=== PATIENT | male | born 1965 | race African-American/Black ===

== ENCOUNTER 2017-08-25 06:39 | Emergency (ER) | payer SELFPAY ==
[~2017-08-25] VITALS: Ht 193 cm; Wt 116.0 kg
[2017-08-25 08:52] VITALS: BP 152/100
== END 2017-08-25 08:52 | disposition home or self-care (01) ==
LOC: ER 06:39
DX: J02.8 Acute pharyngitis due to other specified organisms (principal); R00.0 Tachycardia, unspecified; M25.812 Other specified joint disorders, left shoulder; F17.200 Nicotine dependence, unspecified, uncomplicated
CPT/HCPCS: 93005; 99283

== ENCOUNTER 2018-07-03 14:15 | Inpatient (IN) | payer SELFPAY ==
[~2018-07-03] VITALS: Ht 193 cm; Wt 124.0 kg
[2018-07-03] VITALS (7 sets, daily range): BP systolic 128–181; BP diastolic 37–113
[2018-07-03] MEDS ORDERED: SODIUM CHLORIDE 0.9% 1,000 ML IV ONE ×3 (14:48→16:00)
[2018-07-03] MEDS ORDERED: KETOROLAC 15MG/ML VIAL IV ONE (15:15)
[2018-07-03 15:35] LABS: BASOPHILS % 0.6 % (0.0-2.0); EOSINOPHILS % 1.2 % (0.0-5.0); HEMATOCRIT. 37.7 % (42.0-52.0); HEMOGLOBIN. 12.1 g/dL (14.0-18.0); LYMPHOCYTES % 20.6 % (20.0-50.0); MEAN CORPUSCULAR HEMOGLOBIN 25.1 pg (28.0-32.0); MEAN CORPUSCULAR VOLUME 77.9 fL (80.0-94.0); MEAN PLATELET VOLUME 8.9 fl (7.4-10.4); MONOCYTES % 6.1 % (2.0-8.0); NEUTROPHILS % 71.5 % (40.0-76.0); PLATELET 285 x1000/uL (130-400); RED BLOOD CELL COUNT 4.83 mill/uL (4.7-6.1); RED CELL DISTRIBUTION WIDTH 14.2 % (11.6-14.6)
[2018-07-03 15:37] LABS: CHLORIDE 104 mEq/L (98-107)
[2018-07-03 15:41] LABS: ETHANOL BLOOD < 10 mg/dL
[2018-07-03] MEDS ORDERED: AZITHROMYCIN 500 MG in DEXT 5% WATER 250 ML IV SCH (15:45)
[2018-07-03] MEDS ORDERED: CEFTRIAXONE 1 G PREMIX 50 ML IV ONE (15:45)
[2018-07-03] MEDS ORDERED: METOPROLOL TARTRATE 5MG/5ML VIAL IV SCH (16:00)
[2018-07-03] MEDS ORDERED: ENOXAPARIN 150MG/ML SYR SUBCUT ONE (16:15)
[2018-07-03] MEDS ORDERED: HEPARIN 25,000 UNITS PREMIX 500 ML IV SCH ×3 (17:30→23:30)
[2018-07-03] MEDS ORDERED: HEPARIN 5000 UNITS/ML VIAL IV ONE ×2 (18:00)
[2018-07-03] MEDS ORDERED: HEPARIN 5000 UNITS/ML VIAL ONE (18:00)
[2018-07-03] MEDS ORDERED: ALTEPLASE IV NR (18:15)
[2018-07-03] MEDS ORDERED: DOCUSATE SODIUM 100MG CAPSULE PO PRN (18:15)
[2018-07-03] MEDS ORDERED: IPRATROPIUM/ALBUTEROL 0.5-3(2.5)MG/3ML NEB INH PRN (18:15)
[2018-07-03] MEDS ORDERED: MAGNESIUM/ALUMINUM HYDROXIDE/SIMETHICONE 30ML UDC PO PRN (18:15)
[2018-07-03] MEDS ORDERED: SODIUM CHLORIDE 0.9% IV NR (18:15)
[2018-07-03] MEDS ORDERED: ACETAMINOPHEN 325MG TABLET PO PRN (18:15)
[2018-07-03] MEDS ORDERED: ALTEPLASE IV PRN (18:15)
[2018-07-03] MEDS ORDERED: SODIUM CHLORIDE 0.9% IV PRN (18:15)
[2018-07-03] MEDS ORDERED: GUAIFENESIN 200MG/10ML SUGAR FREE UDC PO PRN (18:15)
[2018-07-03] MEDS ORDERED: CLONIDINE 0.1MG TABLET PO PRN (18:15)
[2018-07-03] MEDS ORDERED: TRAMADOL 50MG TABLET PO PRN (18:15)
[2018-07-03] MEDS ORDERED: LEVOFLOXACIN 500MG PREMIX 100 ML IV SCH (18:15)
[2018-07-03] MEDS ORDERED: ONDANSETRON HCL 4MG/2ML INJ IV PRN (18:15)
[2018-07-03] MEDS ORDERED: ENOXAPARIN 60MG/0.6ML SYR SUBCUT SCH (21:00)
[2018-07-03] MEDS ORDERED: DEXTROSE 50% WATER 50ML SYRINGE IV PRN (21:45)
[2018-07-03 22:25] LABS: TOTAL IRON BINDING CAPACITY 240 ug/dL (250-450)
[2018-07-04] VITALS (86 sets, daily range): BP systolic 93–188; BP diastolic 26–125
[2018-07-04] MEDS ORDERED: KCL 20MEQ/100ML PREMIX 100 ML IV NR
[2018-07-04] MEDS ORDERED: DILTIAZEM HCL 60MG TABLET PO SCH
[2018-07-04] MEDS ORDERED: HEPARIN BOLUS PRN aPTT 37-44 IV ×2 (00:45)
[2018-07-04] MEDS ORDERED: HEPARIN BOLUS PRN aPTT <36 IV ×2 (00:45)
[2018-07-04] MEDS ORDERED: HEPARIN 80 UNITS/KG BOLUS IV SCH (00:45)
[2018-07-04] MEDS: HEPARIN 25,000 UNITS PREMIX 500 ML IV SCH ×3 (01:29→13:20)
[2018-07-04 01:34] LABS: CREATINE KINASE 154 IU/L (39-308)
[2018-07-04 01:35] LABS: CREATINE KINASE MB FRACTION < 1.0 ng/mL (0.5-3.6)
[2018-07-04 02:16] LABS: INR 1.3; PROTHROMBIN TIME 12.9 sec (9.1-11.1)
[2018-07-04] MEDS: LEVOFLOXACIN 500MG PREMIX 100 ML IV SCH (04:12)
[2018-07-04 06:00] LABS: HEMATOCRIT. 34.4 % (42.0-52.0); LYMPHOCYTES % 27.3 % (20.0-50.0); MEAN CORPUSCULAR HEMOGLOBIN 24.7 pg (28.0-32.0); MEAN CORPUSCULAR VOLUME 77.3 fL (80.0-94.0); MEAN PLATELET VOLUME 8.6 fl (7.4-10.4); NEUTROPHILS % 62.7 % (40.0-76.0); PLATELET 253 x1000/uL (130-400); RED BLOOD CELL COUNT 4.45 mill/uL (4.7-6.1); RED CELL DISTRIBUTION WIDTH 14.1 % (11.6-14.6)
[2018-07-04 06:12] LABS: CHLORIDE 108 mEq/L (98-107)
[2018-07-04] MEDS ORDERED: MORPHINE SULFATE 4 MG/ML CPJ (NOT FOR IM USE) IV PRN (06:15)
[2018-07-04 06:20] LABS: CREATINE KINASE 155 IU/L (39-308)
[2018-07-04 06:23] LABS: CREATINE KINASE MB FRACTION < 1.0 ng/mL (0.5-3.6)
[2018-07-04] MEDS: BLOOD SUGAR DIAGNOSTIC STRIP TEST SCH ×4 (08:19→21:27)
[2018-07-04] MEDS: INSULIN LISPRO 100 UNITS/ML SUBCUT SCH ×4 (08:19→21:00)
[2018-07-04] MEDS ORDERED: ASPIRIN 325MG EC TABLET PO SCH (09:00)
[2018-07-04] MEDS: PANTOPRAZOLE SODIUM 40 MG/VIAL IV SCH (09:32)
[2018-07-04] MEDS ORDERED: ADENOSINE 3 MG/ML 2ML VIAL IV NR (09:45)
[2018-07-04] MEDS ORDERED: ADENOSINE 3 MG/ML 2ML VIAL IV PRN ×2 (11:00→17:15)
[2018-07-04] MEDS ORDERED: ADENOSINE 3 MG/ML 2ML VIAL IV ONE (11:15)
[2018-07-04] MEDS: DILTIAZEM HCL 60MG TABLET PO SCH ×4 (11:30→23:21)
[2018-07-04] MEDS ORDERED: IPRATROPIUM/ALBUTEROL 0.5-3(2.5)MG/3ML NEB HHN SCH (12:00)
[2018-07-04 12:39] LABS: *AMPHETAMINES SCREEN URINE NEGATIVE (NEGATIVE); *BARBITURATES SCREEN URINE NEGATIVE (NEGATIVE); *BENZODIAZEPINES SCREEN URINE NEGATIVE (NEGATIVE)
[2018-07-04 12:40] LABS: *COCAINE SCREEN URINE PRESUMTIVE POSITIVE (NEGATIVE); CANNABINOID URINE SCREEN NEGATIVE (NEGATIVE); METHADONE URINE SCREEN NEGATIVE (NEGATIVE); OPIATES URINE SCREEN PRESUMTIVE POSITIVE (NEGATIVE); PHENCYCLIDINE URINE SCREEN NEGATIVE (NEGATIVE)
[2018-07-04] MEDS ORDERED: FUROSEMIDE 20MG/2ML VIAL IVP NR (14:30)
[2018-07-04] MEDS ORDERED: POTASSIUM CHLORIDE 20MEQ TABLET SR PO NR ×2 (14:30)
[2018-07-04] MEDS: ENOXAPARIN 120MG/0.8ML SYR SUBCUT SCH (14:51)
[2018-07-04] MEDS ORDERED: ENOXAPARIN 60MG/0.6ML SYR SUBCUT SCH (21:00)
[2018-07-04] MEDS: ZOLPIDEM TARTRATE 5MG TABLET PO PRN (21:36)
[2018-07-05] VITALS (71 sets, daily range): BP systolic 69–151; BP diastolic 20–116
[2018-07-05] MEDS: ENOXAPARIN 120MG/0.8ML SYR SUBCUT SCH ×2 (03:38→16:31)
[2018-07-05] MEDS: LEVOFLOXACIN 500MG PREMIX 100 ML IV SCH (03:39)
[2018-07-05 05:44] LABS: CHLORIDE 108 mEq/L (98-107)
[2018-07-05 05:55] LABS: CREATINE KINASE 105 IU/L (39-308)
[2018-07-05] MEDS: DILTIAZEM HCL 60MG TABLET PO SCH ×3 (06:10→23:42)
[2018-07-05 06:12] LABS: CREATINE KINASE MB FRACTION < 1.0 ng/mL (0.5-3.6)
[2018-07-05] MEDS: BLOOD SUGAR DIAGNOSTIC STRIP TEST SCH ×4 (07:50→21:07)
[2018-07-05] MEDS: INSULIN LISPRO 100 UNITS/ML SUBCUT SCH ×4 (08:20→21:00)
[2018-07-05] MEDS: PANTOPRAZOLE SODIUM 40 MG/VIAL IV SCH (09:00)
[2018-07-05 15:08] LABS: *BARBITURATES SCREEN URINE NEGATIVE (NEGATIVE); *COCAINE SCREEN URINE PRESUMTIVE POSITIVE (NEGATIVE)
[2018-07-05 15:09] LABS: CANNABINOID URINE SCREEN NEGATIVE (NEGATIVE); METHADONE URINE SCREEN NEGATIVE (NEGATIVE); OPIATES URINE SCREEN PRESUMTIVE POSITIVE (NEGATIVE); PHENCYCLIDINE URINE SCREEN NEGATIVE (NEGATIVE)
[2018-07-05 15:36] LABS: *AMPHETAMINES SCREEN URINE NEGATIVE (NEGATIVE); *BENZODIAZEPINES SCREEN URINE NEGATIVE (NEGATIVE)
[2018-07-05] MEDS: ZOLPIDEM TARTRATE 5MG TABLET PO PRN (20:26)
[2018-07-06] VITALS (16 sets, daily range): BP systolic 91–156; BP diastolic 16–92
[2018-07-06] MEDS: ENOXAPARIN 120MG/0.8ML SYR SUBCUT SCH (03:34)
[2018-07-06] MEDS: LEVOFLOXACIN 500MG PREMIX 100 ML IV SCH (03:36)
[2018-07-06] MEDS: DILTIAZEM HCL 60MG TABLET PO SCH ×2 (05:10→12:00)
[2018-07-06] MEDS: BLOOD SUGAR DIAGNOSTIC STRIP TEST SCH ×4 (06:45→20:50)
[2018-07-06] MEDS: INSULIN LISPRO 100 UNITS/ML SUBCUT SCH ×4 (07:20→20:50)
[2018-07-06] MEDS: PANTOPRAZOLE SODIUM 40 MG/VIAL IV SCH (08:34)
[2018-07-06] MEDS: LOSARTAN POTASSIUM 25 MG TABLET PO SCH (12:00)
[2018-07-06 15:50] LABS: BASOPHILS % 0.7 % (0.0-2.0); EOSINOPHILS % 4.6 % (0.0-5.0); HEMATOCRIT. 34.2 % (42.0-52.0); HEMOGLOBIN. 11.2 g/dL (14.0-18.0); MEAN CORPUSCULAR HEMOGLOBIN 25.3 pg (28.0-32.0); MEAN CORPUSCULAR VOLUME 77.2 fL (80.0-94.0); MEAN PLATELET VOLUME 8.6 fl (7.4-10.4); NEUTROPHILS % 65.7 % (40.0-76.0); PLATELET 329 x1000/uL (130-400); RED BLOOD CELL COUNT 4.43 mill/uL (4.7-6.1); RED CELL DISTRIBUTION WIDTH 14.3 % (11.6-14.6)
[2018-07-06 15:53] LABS: INR 1.1; PROTHROMBIN TIME 10.9 sec (9.1-11.1)
[2018-07-06] MEDS: RIVAROXABAN 15 MG TABLET PO SCH (16:43)
[2018-07-07] VITALS (12 sets, daily range): BP systolic 114–167; BP diastolic 59–85
[2018-07-07] MEDS: BLOOD SUGAR DIAGNOSTIC STRIP TEST SCH ×3 (06:50→16:50)
[2018-07-07] MEDS: INSULIN LISPRO 100 UNITS/ML SUBCUT SCH ×3 (07:20→17:20)
[2018-07-07 08:09] LABS: CHLORIDE 110 mEq/L (98-107)
[2018-07-07 08:09] LABS: BASOPHILS % 0.1 % (0.0-2.0); HEMATOCRIT. 34.9 % (42.0-52.0); HEMOGLOBIN. 11.2 g/dL (14.0-18.0); LYMPHOCYTES % 28.4 % (20.0-50.0); MEAN CORPUSCULAR VOLUME 77.8 fL (80.0-94.0); MEAN PLATELET VOLUME 8.2 fl (7.4-10.4); MONOCYTES % 5.6 % (2.0-8.0); NEUTROPHILS % 60.9 % (40.0-76.0); PLATELET 366 x1000/uL (130-400); RED BLOOD CELL COUNT 4.48 mill/uL (4.7-6.1); RED CELL DISTRIBUTION WIDTH 14.3 % (11.6-14.6)
[2018-07-07] MEDS: LOSARTAN POTASSIUM 25 MG TABLET PO SCH (08:48)
[2018-07-07] MEDS: RIVAROXABAN 15 MG TABLET PO SCH ×2 (08:48→17:00)
[2018-07-07] MEDS ORDERED: FAMOTIDINE 20MG TABLET PO SCH (09:00)
[2018-07-07] MEDS ORDERED: DILTIAZEM HCL 5MG/ML 5ML VIAL IV NR (09:45)
[2018-07-07] MEDS ORDERED: DILTIAZEM HCL 60MG TABLET PO NR (10:00)
[2018-07-07] MEDS ORDERED: DILTIAZEM HCL 180MG CAPSULE CD 24HR PO SCH (18:00)
== END 2018-07-07 18:30 | disposition home or self-care (01) | DRG 134 ==
LOC: ER 14:15 → CVICU 17:32 → EDBEDREQTM 17:37 → EDBEDREQ 17:37 → EDBEDREQSVC 18:11 → EDBEDREQTM 18:11 → ENRESERV 20:31 → 3WST 07-06 06:25
PROVIDERS: ADMIT Internal Medicine; ATTEND Internal Medicine
DX: I26.99 Other pulmonary embolism without acute cor pulmonale (principal); J96.00 Acute respiratory failure, unspecified whether with hypoxia or hypercapnia; E44.0 Moderate protein-calorie malnutrition; J90 Pleural effusion, not elsewhere classified; I42.9 Cardiomyopathy, unspecified; I27.20 Pulmonary hypertension, unspecified; D50.9 Iron deficiency anemia, unspecified; E11.9 Type 2 diabetes mellitus without complications; I47.1 Supraventricular tachycardia; D72.829 Elevated white blood cell count, unspecified; I11.9 Hypertensive heart disease without heart failure; F10.10 Alcohol abuse, uncomplicated; E87.6 Hypokalemia; F14.10 Cocaine abuse, uncomplicated; I25.10 Atherosclerotic heart disease of native coronary artery without angina pectoris; F17.210 Nicotine dependence, cigarettes, uncomplicated; J44.9 Chronic obstructive pulmonary disease, unspecified; Z79.01 Long term (current) use of anticoagulants; Z79.4 Long term (current) use of insulin; Z79.899 Other long term (current) drug therapy; Z71.51 Drug abuse counseling and surveillance of drug abuser; Z68.33 Body mass index [BMI] 33.0-33.9, adult; Z71.6 Tobacco abuse counseling
CPT/HCPCS: 36415; 71045; 71275; 80061; 80305; 82550; 82553; 82607; 82746; 82962; 83036; 83540; 83550; 83735; 83880; 84153; 84443; 84484; 85379; 93005; 93306; 93970; 96361; 96365; 96368; 96375; 99291; C9113; G0482; J0153; J0456; J0696; J1644; J1650; J1885; J1940; J1956; J2270; J2997; J3480; J3490; J7030; J7040; J7050; J7060; G0103

== ENCOUNTER 2018-09-07 10:11 | Inpatient (IN) | payer SELFPAY ==
[2018-09-07] VITALS (7 sets, daily range): BP systolic 115–141; BP diastolic 66–87
[~2018-09-07] VITALS: Ht 193 cm; Wt 134.9 kg
[2018-09-07] MEDS ORDERED: ADENOSINE 3 MG/ML 2ML VIAL IV ONE (10:24)
[2018-09-07] MEDS ORDERED: LORAZEPAM 2MG/ML CPJ ONE (10:29)
[2018-09-07] MEDS ORDERED: DILTIAZEM HCL 5MG/ML 5ML VIAL IV ONE ×3 (10:30→20:30)
[2018-09-07] MEDS ORDERED: LORAZEPAM 2MG/ML CPJ IV ONE (10:30)
[2018-09-07] MEDS ORDERED: SODIUM CHLORIDE 0.9% 1,000 ML IV ONE (10:32)
[2018-09-07 10:41] LABS: BASOPHILS % 1.3 % (0.0-2.0); EOSINOPHILS % 2.9 % (0.0-5.0); HEMATOCRIT. 38.4 % (42.0-52.0); HEMOGLOBIN. 12.2 g/dL (14.0-18.0); LYMPHOCYTES % 44.2 % (20.0-50.0); MEAN CORPUSCULAR HEMOGLOBIN 25.2 pg (28.0-32.0); MEAN CORPUSCULAR VOLUME 79.3 fL (80.0-94.0); MEAN PLATELET VOLUME 8.5 fl (7.4-10.4); MONOCYTES % 4.8 % (2.0-8.0); NEUTROPHILS % 46.8 % (40.0-76.0); PLATELET 194 x1000/uL (130-400); RED BLOOD CELL COUNT 4.85 mill/uL (4.7-6.1)
[2018-09-07] MEDS ORDERED: DILTIAZEM HCL 125 MG in DEXT 5% WATER 100 ML IV ONE (10:45)
[2018-09-07 10:47] LABS: CHLORIDE 108 mEq/L (98-107)
[2018-09-07] MEDS ORDERED: ONDANSETRON HCL 4MG/2ML INJ IV ONE (11:00)
[2018-09-07] MEDS ORDERED: POTASSIUM CHLORIDE 20MEQ TABLET SR PO ONE (11:45)
[2018-09-07] MEDS ORDERED: ONDANSETRON HCL 4MG/2ML INJ IV PRN (12:30)
[2018-09-07] MEDS ORDERED: DEXTROSE 50% WATER 50ML SYRINGE IV PRN (12:30)
[2018-09-07] MEDS ORDERED: ACETAMINOPHEN 325MG TABLET PO PRN (12:30)
[2018-09-07] MEDS ORDERED: ENOXAPARIN 100MG/ML SYR SUBCUT ONE (14:00)
[2018-09-07] MEDS ORDERED: IOHEXOL-350 100 ML BOTTLE ONE (15:22)
[2018-09-07] MEDS ORDERED: DILTIAZEM HCL 125 MG in DEXT 5% WATER 100 ML IV PRN (20:30)
[2018-09-07] MEDS: INSULIN LISPRO 100 UNITS/ML SUBCUT SCH (21:00)
[2018-09-07] MEDS: AMIODARONE HCL 200 MG TABLET PO SCH (21:15)
[2018-09-07] MEDS: CARVEDILOL 6.25 MG TABLET PO SCH (21:15)
[2018-09-07] MEDS: RIVAROXABAN 10 MG TABLET PO SCH (21:17)
[2018-09-07] MEDS: BLOOD SUGAR DIAGNOSTIC STRIP TEST SCH (21:29)
[2018-09-08] VITALS (15 sets, daily range): BP systolic 104–152; BP diastolic 55–99
[2018-09-08] MEDS: DILTIAZEM HCL 60MG TABLET PO SCH ×3 (00:01→13:00)
[2018-09-08] MEDS: BLOOD SUGAR DIAGNOSTIC STRIP TEST SCH ×4 (05:55→20:52)
[2018-09-08 06:24] LABS: CHLORIDE 110 mEq/L (98-107)
[2018-09-08 06:26] LABS: BASOPHILS % 0.5 % (0.0-2.0); EOSINOPHILS % 1.3 % (0.0-5.0); HEMATOCRIT. 35.8 % (42.0-52.0); HEMOGLOBIN. 11.5 g/dL (14.0-18.0); LYMPHOCYTES % 33.7 % (20.0-50.0); MEAN CORPUSCULAR HEMOGLOBIN 25.1 pg (28.0-32.0); MEAN PLATELET VOLUME 8.8 fl (7.4-10.4); MONOCYTES % 5.4 % (2.0-8.0); NEUTROPHILS % 59.1 % (40.0-76.0); PLATELET 182 x1000/uL (130-400); RED BLOOD CELL COUNT 4.59 mill/uL (4.7-6.1); RED CELL DISTRIBUTION WIDTH 16.1 % (11.6-14.6)
[2018-09-08] MEDS: INSULIN LISPRO 100 UNITS/ML SUBCUT SCH ×4 (07:20→20:53)
[2018-09-08] MEDS: CARVEDILOL 6.25 MG TABLET PO SCH ×2 (08:13→20:54)
[2018-09-08] MEDS: AMIODARONE HCL 200 MG TABLET PO SCH ×3 (08:13→17:45)
[2018-09-08] MEDS: LOSARTAN POTASSIUM 25 MG TABLET PO SCH (08:13)
[2018-09-08] MEDS: RIVAROXABAN 10 MG TABLET PO SCH (17:45)
[2018-09-08] MEDS: DILTIAZEM HCL 90MG TABLET PO SCH (17:45)
[2018-09-08] MEDS ORDERED: DILTIAZEM HCL 125 MG in DEXT 5% WATER 100 ML IV PRN (19:54)
[2018-09-09] VITALS (12 sets, daily range): BP systolic 112–132; BP diastolic 38–78
[2018-09-09] MEDS: DILTIAZEM HCL 90MG TABLET PO SCH ×5 (00:21→23:46)
[2018-09-09] MEDS: BLOOD SUGAR DIAGNOSTIC STRIP TEST SCH ×4 (06:13→21:00)
[2018-09-09] MEDS: INSULIN LISPRO 100 UNITS/ML SUBCUT SCH ×4 (07:20→21:00)
[2018-09-09] MEDS: AMIODARONE HCL 200 MG TABLET PO SCH ×3 (08:30→17:14)
[2018-09-09] MEDS: LOSARTAN POTASSIUM 25 MG TABLET PO SCH (08:31)
[2018-09-09] MEDS: CARVEDILOL 6.25 MG TABLET PO SCH ×2 (08:31→21:45)
[2018-09-09] MEDS: HYDROCODONE/ACETAMINOPHEN 5/325MG TABLET PO PRN ×2 (14:09→15:09)
[2018-09-09] MEDS: RIVAROXABAN 20 MG TABLET PO SCH (17:15)
[2018-09-09 18:26] LABS: CLARITY URINE TURBID (CLEAR); COLOR URINE DARK YELLOW (YELLOW); KETONES URINE NEGATIVE (NEGATIVE); LEUKOCYTE ESTERASE URINE NEGATIVE (NEGATIVE); NITRITE URINE NEGATIVE (NEGATIVE); OCCULT BLOOD URINE 1+ (NEGATIVE); PROTEIN URINE 2+ (NEGATIVE); SPECIFIC GRAVITY URINE 1.038 (1.005-1.030)
[2018-09-09 18:39] LABS: *AMPHETAMINES SCREEN URINE NEGATIVE (NEGATIVE)
[2018-09-09 18:40] LABS: *BARBITURATES SCREEN URINE NEGATIVE (NEGATIVE); *BENZODIAZEPINES SCREEN URINE PRESUMTIVE POSITIVE (NEGATIVE); *COCAINE SCREEN URINE PRESUMTIVE POSITIVE (NEGATIVE); METHADONE URINE SCREEN NEGATIVE (NEGATIVE); OPIATES URINE SCREEN NEGATIVE (NEGATIVE); PHENCYCLIDINE URINE SCREEN NEGATIVE (NEGATIVE)
[2018-09-09 18:41] LABS: CANNABINOID URINE SCREEN NEGATIVE (NEGATIVE)
[2018-09-10] VITALS (10 sets, daily range): BP systolic 108–149; BP diastolic 46–83
[2018-09-10] MEDS: BLOOD SUGAR DIAGNOSTIC STRIP TEST SCH ×2 (05:30→11:50)
[2018-09-10] MEDS: DILTIAZEM HCL 90MG TABLET PO SCH (06:00)
[2018-09-10 07:12] LABS: CHLORIDE 102 mEq/L (98-107)
[2018-09-10] MEDS: INSULIN LISPRO 100 UNITS/ML SUBCUT SCH ×2 (07:20→11:54)
[2018-09-10 07:32] LABS: BASOPHILS % 0.2 % (0.0-2.0); EOSINOPHILS % 0.2 % (0.0-5.0); HEMATOCRIT. 33.1 % (42.0-52.0); HEMOGLOBIN. 10.7 g/dL (14.0-18.0); LYMPHOCYTES % 22.3 % (20.0-50.0); MEAN CORPUSCULAR HEMOGLOBIN 25.3 pg (28.0-32.0); MONOCYTES % 6.5 % (2.0-8.0); NEUTROPHILS % 70.8 % (40.0-76.0); PLATELET 192 x1000/uL (130-400); RED BLOOD CELL COUNT 4.25 mill/uL (4.7-6.1); RED CELL DISTRIBUTION WIDTH 15.6 % (11.6-14.6)
[2018-09-10] MEDS: AMIODARONE HCL 200 MG TABLET PO SCH (08:14)
[2018-09-10] MEDS: CARVEDILOL 6.25 MG TABLET PO SCH (08:15)
[2018-09-10] MEDS: LOSARTAN POTASSIUM 25 MG TABLET PO SCH (08:15)
[2018-09-10] MEDS ORDERED: DILTIAZEM HCL 180MG CAPSULE CD 24HR PO SCH (11:00)
[2018-09-10] MEDS ORDERED: DILT180C66 PO (12:00)
[2018-09-10] MEDS ORDERED: AMI2 PO (12:00)
[2018-09-10] MEDS ORDERED: RIVA20TA PO (12:00)
[2018-09-10] MEDS ORDERED: LOSA50TA3 PO (12:00)
[2018-09-10] MEDS ORDERED: COR6 PO (12:00)
[2018-09-10] MEDS: RIVAROXABAN 20 MG TABLET PO SCH (14:36)
[2018-09-10] MEDS ORDERED: AMIODARONE HCL 200 MG TABLET PO SCH (17:50)
[2018-09-11] MEDS ORDERED: LOSARTAN POTASSIUM 50 MG TABLET PO SCH (09:00)
== END 2018-09-10 14:53 | disposition home or self-care (01) | DRG 201 ==
LOC: ER 10:25 → EDBEDREQ 12:00 → EDBEDREQSVC 12:00 → 3WST 12:10 → EDBEDREQ 12:13 → ENRESERV 16:46
PROVIDERS: ADMIT Internal Medicine; ATTEND Internal Medicine
PROC: 5A2204Z Restoration of Cardiac Rhythm, Single (ICD-10-PCS; principal; 2018-09-07)
DX: I47.1 Supraventricular tachycardia (principal); I50.23 Acute on chronic systolic (congestive) heart failure; E87.8 Other disorders of electrolyte and fluid balance, not elsewhere classified; I27.20 Pulmonary hypertension, unspecified; E44.1 Mild protein-calorie malnutrition; I42.9 Cardiomyopathy, unspecified; I48.92 Unspecified atrial flutter; D64.9 Anemia, unspecified; I11.0 Hypertensive heart disease with heart failure; E11.9 Type 2 diabetes mellitus without complications; E87.6 Hypokalemia; E66.9 Obesity, unspecified; F10.10 Alcohol abuse, uncomplicated; F14.90 Cocaine use, unspecified, uncomplicated; F17.210 Nicotine dependence, cigarettes, uncomplicated; Z86.711 Personal history of pulmonary embolism; Z79.01 Long term (current) use of anticoagulants; Z71.3 Dietary counseling and surveillance; Z68.36 Body mass index [BMI] 36.0-36.9, adult; Z71.51 Drug abuse counseling and surveillance of drug abuser
CPT/HCPCS: 36415; 71045; 71275; 80048; 80305; 82962; 83880; 84484; 93005; 93306; 96372; 96374; 96375; 99291; J0153; J1650; J1815; J2060; J2405; J3490; J7030; J7060; Q9967

== ENCOUNTER 2018-11-05 03:15 | Inpatient (IN) | payer OTHER, MEDICAID ==
[2018-11-05] VITALS (58 sets, daily range): BP systolic 50–170; BP diastolic 22–122
[~2018-11-05] VITALS: Ht 193 cm; Wt 111.1 kg
[~2018-11-05 03:15] MED LIST: AMI2 PO; COR6 PO; DILT180C66 PO; LOSA50TA3 PO; RIVA20TA PO
[2018-11-05] MEDS ORDERED: SODIUM CHLORIDE 0.9% 500 ML IV ONE (03:30)
[2018-11-05] MEDS ORDERED: ADENOSINE 3 MG/ML 2ML VIAL IV ONE (03:30)
[2018-11-05 03:46] LABS: BASOPHILS % 1.3 % (0.0-2.0); EOSINOPHILS % 2.5 % (0.0-5.0); HEMOGLOBIN. 13.5 g/dL (14.0-18.0); LYMPHOCYTES % 40.2 % (20.0-50.0); MEAN CORPUSCULAR HEMOGLOBIN 25.7 pg (28.0-32.0); MEAN CORPUSCULAR VOLUME 77.8 fL (80.0-94.0); MEAN PLATELET VOLUME 8.5 fl (7.4-10.4); MONOCYTES % 4.3 % (2.0-8.0); NEUTROPHILS % 51.7 % (40.0-76.0); PLATELET 278 x1000/uL (130-400); RED BLOOD CELL COUNT 5.27 mill/uL (4.7-6.1); RED CELL DISTRIBUTION WIDTH 16.2 % (11.6-14.6)
[2018-11-05 03:48] LABS: CHLORIDE 110 mEq/L (98-107)
[2018-11-05 04:52] LABS: CLARITY URINE CLEAR (CLEAR); COLOR URINE YELLOW (YELLOW); KETONES URINE NEGATIVE (NEGATIVE); LEUKOCYTE ESTERASE URINE NEGATIVE (NEGATIVE); NITRITE URINE NEGATIVE (NEGATIVE); OCCULT BLOOD URINE 2+ (NEGATIVE); PROTEIN URINE 2+ (NEGATIVE); SPECIFIC GRAVITY URINE 1.018 (1.005-1.030); UROBILINOGEN URINE 0.2 E.U./dL (0.2-1.0)
[2018-11-05 05:28] LABS: PARTIAL THROMBOPLASTIN TIME 40.8 sec (23.4-31.0); PROTHROMBIN TIME 48.9 sec (9.6-11.0)
[2018-11-05] MEDS ORDERED: DILTIAZEM HCL 5MG/ML 5ML VIAL IV NR (05:30)
[2018-11-05 05:40] LABS: INR 5.1
[2018-11-05] MEDS ORDERED: CEFTRIAXONE 1 G PREMIX 50 ML IV ONE (06:15)
[2018-11-05 06:29] LABS: BG BASE EXCESS -3.3 mmol/L (-2.0-2.0); BG CARBOXYHEMOGLOBIN 1.9 % (0.5-1.5); BG FRACTION INSPIRED OXYGEN 100; BG HCO3 ACT 21.2 mmol/L (22.0-26.0); BG METHEMOGLOBIN 0.2 % (0.0-1.5); BG OXYGEN SATURATION 94.9 % (92.0-98.5); BG OXYHEMOGLOBIN 92.9 % (94.0-97.0); BG PCO2 36.3 mmHg (35.0-45.0); BG PH 7.384 (7.350-7.450); BG PO2 80.4 mmHg (75.0-100.0); BG SAMPLE SITE RIGHT RADIAL; BG TOTAL HEMOGLOBIN 13.4 g/dL (12.0-18.0); BG VENT MODE MASK - NRB
[2018-11-05] MEDS ORDERED: DILTIAZEM HCL 125 MG in DEXT 5% WATER 100 ML IV ONE ×4 (06:45)
[2018-11-05 07:35] LABS: *BARBITURATES SCREEN URINE NEGATIVE (NEGATIVE); *BENZODIAZEPINES SCREEN URINE NEGATIVE (NEGATIVE)
[2018-11-05 07:36] LABS: *COCAINE SCREEN URINE NEGATIVE (NEGATIVE); OPIATES URINE SCREEN NEGATIVE (NEGATIVE)
[2018-11-05 07:37] LABS: *AMPHETAMINES SCREEN URINE NEGATIVE (NEGATIVE); CANNABINOID URINE SCREEN NEGATIVE (NEGATIVE); METHADONE URINE SCREEN NEGATIVE (NEGATIVE); PHENCYCLIDINE URINE SCREEN NEGATIVE (NEGATIVE)
[2018-11-05] MEDS ORDERED: NITROGLYCERIN 0.4MG TABLET SL SL PRN (08:45)
[2018-11-05] MEDS ORDERED: ZOLPIDEM TARTRATE 5MG TABLET PO PRN (08:45)
[2018-11-05] MEDS ORDERED: IPRATROPIUM/ALBUTEROL 0.5-3(2.5)MG/3ML NEB INH PRN (08:45)
[2018-11-05] MEDS ORDERED: DOCUSATE SODIUM 100MG CAPSULE PO PRN (08:45)
[2018-11-05] MEDS ORDERED: GUAIFENESIN 200MG/10ML SUGAR FREE UDC PO PRN (08:45)
[2018-11-05] MEDS ORDERED: MAGNESIUM/ALUMINUM HYDROXIDE/SIMETHICONE 30ML UDC PO PRN (08:45)
[2018-11-05] MEDS ORDERED: CLONIDINE 0.1MG TABLET PO PRN (08:45)
[2018-11-05] MEDS ORDERED: ACETAMINOPHEN 325MG TABLET PO PRN (08:45)
[2018-11-05] MEDS ORDERED: ONDANSETRON HCL 4MG/2ML INJ IV PRN (08:45)
[2018-11-05] MEDS ORDERED: TRAMADOL 50MG TABLET PO PRN (08:45)
[2018-11-05] MEDS ORDERED: NA PHOS,M-B/NA PHOS,DI-BA ENEMA 118ML PR PRN (08:45)
[2018-11-05] MEDS ORDERED: AMIODARONE HCL 150 MG in DEXT 5% WATER 100 ML IV SCH (09:00)
[2018-11-05] MEDS ORDERED: AMIODARONE HCL 900 MG in DEXT 5% WATER 482 ML IV SCH (09:00)
[2018-11-05] MEDS ORDERED: CARVEDILOL 3.125 MG TABLET PO SCH (09:00)
[2018-11-05] MEDS ORDERED: AMIODARONE HCL 200 MG TABLET PO SCH (09:00)
[2018-11-05] MEDS ORDERED: DILTIAZEM HCL 90MG TABLET PO SCH (09:15)
[2018-11-05] MEDS: FAMOTIDINE 20MG TABLET PO SCH ×2 (10:59→21:50)
[2018-11-05] MEDS ORDERED: FUROSEMIDE 40MG/4ML VIAL IVP SCH (12:00)
[2018-11-05 12:05] LABS: BG BASE EXCESS -1.9 mmol/L (-2.0-2.0); BG CARBOXYHEMOGLOBIN 0.6 % (0.5-1.5); BG DEOXYHEMOGLOBIN 9.4 % (0.0-5.0); BG HCO3 ACT 21.9 mmol/L (22.0-26.0); BG METHEMOGLOBIN 0.2 % (0.0-1.5); BG OXYGEN SATURATION 90.5 % (92.0-98.5); BG OXYHEMOGLOBIN 89.8 % (94.0-97.0); BG PCO2 34.5 mmHg (35.0-45.0); BG PO2 60.6 mmHg (75.0-100.0); BG SAMPLE SITE RIGHT RADIAL; BG VENT MODE MASK - NRB
[2018-11-05] MEDS ORDERED: ADENOSINE 3 MG/ML 2ML VIAL IV NR (12:45)
[2018-11-05] MEDS ORDERED: FUROSEMIDE 40MG/4ML VIAL IVP NR (12:45)
[2018-11-05] MEDS ORDERED: METOPROLOL TARTRATE 5MG/5ML VIAL IV NR (13:00)
[2018-11-05] MEDS ORDERED: ESMOLOL 2500MG PREMIX 250 ML IV PRN (13:15)
[2018-11-05 13:45] LABS: PHOSPHORUS 3.5 mg/dL (2.5-4.9)
[2018-11-05] MEDS: IPRATROPIUM BROMIDE (0.02%) 0.5MG/2.5ML NEB HHN SCH ×2 (17:06→20:28)
[2018-11-05] MEDS: NICOTINE 14MG PATCH TD SCH (17:14)
[2018-11-05] MEDS: FUROSEMIDE 40MG/4ML VIAL IVP SCH (17:15)
[2018-11-05] MEDS: DILTIAZEM HCL 125 MG in DEXT 5% WATER 100 ML IV PRN (17:16)
[2018-11-05] MEDS ORDERED: DIGOXIN 500MCG/2ML AMP IV SCH (18:00)
[2018-11-05 19:29] LABS: CREATINE KINASE MB FRACTION 1.5 ng/mL (0.5-3.6)
[2018-11-05] MEDS: LORAZEPAM 0.5MG TABLET PO PRN (21:50)
[2018-11-05 23:55] LABS: CREATINE KINASE MB FRACTION 1.1 ng/mL (0.5-3.6)
[2018-11-06] VITALS (93 sets, daily range): BP systolic 44–135; BP diastolic 24–92
[2018-11-06] MEDS: IPRATROPIUM BROMIDE (0.02%) 0.5MG/2.5ML NEB HHN SCH ×3 (01:34→20:37)
[2018-11-06] MEDS: LORAZEPAM 0.5MG TABLET PO PRN (02:50)
[2018-11-06] MEDS: DILTIAZEM HCL 125 MG in DEXT 5% WATER 100 ML IV PRN (03:30)
[2018-11-06 05:46] LABS: PROTHROMBIN TIME 52.6 sec (9.6-11.0)
[2018-11-06 07:19] LABS: INR 5.5
[2018-11-06 09:04] LABS: BASOPHILS % 0.5 % (0.0-2.0); EOSINOPHILS % 0.4 % (0.0-5.0); HEMATOCRIT. 36.8 % (42.0-52.0); HEMOGLOBIN. 12.2 g/dL (14.0-18.0); LYMPHOCYTES % 27.4 % (20.0-50.0); MEAN CORPUSCULAR HEMOGLOBIN 25.3 pg (28.0-32.0); MEAN CORPUSCULAR VOLUME 76.4 fL (80.0-94.0); MEAN PLATELET VOLUME 8.8 fl (7.4-10.4); NEUTROPHILS % 65.7 % (40.0-76.0); PLATELET 201 x1000/uL (130-400); RED BLOOD CELL COUNT 4.82 mill/uL (4.7-6.1); RED CELL DISTRIBUTION WIDTH 15.9 % (11.6-14.6)
[2018-11-06] MEDS: FUROSEMIDE 40MG/4ML VIAL IVP SCH (09:46)
[2018-11-06] MEDS: FAMOTIDINE 20MG TABLET PO SCH ×2 (09:46→21:53)
[2018-11-06] MEDS: NICOTINE 14MG PATCH TD SCH (09:46)
[2018-11-06] MEDS: ESMOLOL 2500MG PREMIX 250 ML IV PRN (19:15)
[2018-11-06] MEDS: FUROSEMIDE 40MG TABLET PO SCH (21:52)
[2018-11-06] MEDS: METOPROLOL TARTRATE 50MG TABLET PO SCH (21:53)
[2018-11-07] VITALS (87 sets, daily range): BP systolic 69–133; BP diastolic 31–90
[2018-11-07] MEDS: ESMOLOL 2500MG PREMIX 250 ML IV PRN ×3 (02:26→23:23)
[2018-11-07] MEDS: IPRATROPIUM BROMIDE (0.02%) 0.5MG/2.5ML NEB HHN SCH ×4 (02:35→21:12)
[2018-11-07 06:30] LABS: INR 2.7; PROTHROMBIN TIME 26.5 sec (9.6-11.0)
[2018-11-07 06:42] LABS: BASOPHILS % 0.9 % (0.0-2.0); HEMATOCRIT. 37.2 % (42.0-52.0); HEMOGLOBIN. 12.3 g/dL (14.0-18.0); LYMPHOCYTES % 31.2 % (20.0-50.0); MEAN CORPUSCULAR HEMOGLOBIN 25.7 pg (28.0-32.0); MEAN CORPUSCULAR VOLUME 77.4 fL (80.0-94.0); MEAN PLATELET VOLUME 9.1 fl (7.4-10.4); NEUTROPHILS % 58.9 % (40.0-76.0); PLATELET 199 x1000/uL (130-400); RED BLOOD CELL COUNT 4.81 mill/uL (4.7-6.1); RED CELL DISTRIBUTION WIDTH 15.7 % (11.6-14.6)
[2018-11-07 06:49] LABS: CHLORIDE 102 mEq/L (98-107)
[2018-11-07] MEDS: NICOTINE 14MG PATCH TD SCH (08:21)
[2018-11-07] MEDS: FUROSEMIDE 40MG TABLET PO SCH ×2 (08:22→20:53)
[2018-11-07] MEDS: METOPROLOL TARTRATE 50MG TABLET PO SCH ×2 (08:22→20:53)
[2018-11-07] MEDS: FAMOTIDINE 20MG TABLET PO SCH ×2 (08:22→20:53)
[2018-11-07] MEDS: LOSARTAN POTASSIUM 50 MG TABLET PO SCH (13:27)
[2018-11-07] MEDS ORDERED: WARFARIN SODIUM 1MG TABLET PO SCH (18:00)
[2018-11-08] VITALS (82 sets, daily range): BP systolic 61–143; BP diastolic 25–115
[2018-11-08] MEDS: IPRATROPIUM BROMIDE (0.02%) 0.5MG/2.5ML NEB HHN SCH ×4 (01:30→20:21)
[2018-11-08] MEDS: ESMOLOL 2500MG PREMIX 250 ML IV PRN ×2 (04:38→19:35)
[2018-11-08 05:42] LABS: BASOPHILS % 0.6 % (0.0-2.0); EOSINOPHILS % 4.8 % (0.0-5.0); HEMATOCRIT. 36.7 % (42.0-52.0); HEMOGLOBIN. 11.9 g/dL (14.0-18.0); LYMPHOCYTES % 33.2 % (20.0-50.0); MEAN CORPUSCULAR HEMOGLOBIN 25.3 pg (28.0-32.0); MEAN CORPUSCULAR VOLUME 77.8 fL (80.0-94.0); MONOCYTES % 7.4 % (2.0-8.0); PLATELET 196 x1000/uL (130-400); RED BLOOD CELL COUNT 4.72 mill/uL (4.7-6.1)
[2018-11-08 05:43] LABS: INR 1.7; PROTHROMBIN TIME 16.7 sec (9.6-11.0)
[2018-11-08 05:55] LABS: CHLORIDE 103 mEq/L (98-107)
[2018-11-08] MEDS: FAMOTIDINE 20MG TABLET PO SCH ×2 (08:55→20:47)
[2018-11-08] MEDS: LOSARTAN POTASSIUM 50 MG TABLET PO SCH (08:55)
[2018-11-08] MEDS: FUROSEMIDE 40MG TABLET PO SCH ×2 (08:55→20:48)
[2018-11-08] MEDS: METOPROLOL TARTRATE 50MG TABLET PO SCH (08:55)
[2018-11-08] MEDS: NICOTINE 14MG PATCH TD SCH (08:55)
[2018-11-08] MEDS ORDERED: METOPROLOL TARTRATE 50MG TABLET PO NR (11:45)
[2018-11-08] MEDS ORDERED: WARFARIN SODIUM 7.5MG TABLET PO NR (18:00)
[2018-11-08] MEDS: METOPROLOL TARTRATE 100MG TABLET PO SCH (20:47)
[2018-11-09] VITALS (57 sets, daily range): BP systolic 75–138; BP diastolic 31–95
[2018-11-09] MEDS: ESMOLOL 2500MG PREMIX 250 ML IV PRN ×5 (00:46→10:52)
[2018-11-09] MEDS: IPRATROPIUM BROMIDE (0.02%) 0.5MG/2.5ML NEB HHN SCH ×4 (02:12→20:13)
[2018-11-09 05:22] LABS: BASOPHILS % 0.9 % (0.0-2.0); EOSINOPHILS % 6.8 % (0.0-5.0); HEMATOCRIT. 39.1 % (42.0-52.0); HEMOGLOBIN. 12.7 g/dL (14.0-18.0); LYMPHOCYTES % 35.9 % (20.0-50.0); MEAN CORPUSCULAR HEMOGLOBIN 25.3 pg (28.0-32.0); MEAN CORPUSCULAR VOLUME 78.2 fL (80.0-94.0); MONOCYTES % 7.9 % (2.0-8.0); NEUTROPHILS % 48.5 % (40.0-76.0); PLATELET 222 x1000/uL (130-400); RED CELL DISTRIBUTION WIDTH 15.9 % (11.6-14.6)
[2018-11-09 05:41] LABS: INR 1.3; PROTHROMBIN TIME 13.1 sec (9.6-11.0)
[2018-11-09 05:47] LABS: CHLORIDE 103 mEq/L (98-107)
[2018-11-09] MEDS: NICOTINE 14MG PATCH TD SCH (09:36)
[2018-11-09] MEDS: FUROSEMIDE 40MG TABLET PO SCH ×2 (09:37→21:17)
[2018-11-09] MEDS: METOPROLOL TARTRATE 100MG TABLET PO SCH ×2 (09:37→21:17)
[2018-11-09] MEDS: FAMOTIDINE 20MG TABLET PO SCH ×2 (09:37→21:16)
[2018-11-09] MEDS: LOSARTAN POTASSIUM 50 MG TABLET PO SCH (09:37)
[2018-11-09] MEDS ORDERED: LIDOCAINE HCL 1% 20ML VIAL (Pyxis) INJ ONE (11:57)
[2018-11-09] MEDS ORDERED: ROCURONIUM BROMIDE 10MG/ML VIAL 5ML IV ONE ×2 (12:19→14:56)
[2018-11-09] MEDS ORDERED: FENTANYL CITRATE/PF 50MCG/ML 2ML VIAL ONE (12:19)
[2018-11-09] MEDS ORDERED: NEOSTIGMINE METHYLSULFATE 1MG/ML 10 ML VIAL ONE (12:19)
[2018-11-09] MEDS ORDERED: MIDAZOLAM HCL 2 MG/2 ML VIAL ONE ×2 (12:20→15:54)
[2018-11-09] MEDS ORDERED: GLYCOPYRROLATE 0.2 MG/ML 2ML VIAL ONE (12:20)
[2018-11-09] MEDS ORDERED: PROPOFOL 200MG/20ML VIAL IV ONE (12:20)
[2018-11-09] MEDS ORDERED: DEXAMETHASONE 4MG/ML 1ML VIAL ONE (12:21)
[2018-11-09] MEDS ORDERED: ONDANSETRON HCL 4MG/2ML INJ ONE (12:21)
[2018-11-09] MEDS ORDERED: LABETALOL 5MG/ML SYR 20 MG/4 ML SYRINGE IV PRN (13:00)
[2018-11-09] MEDS ORDERED: HYDROMORPHONE HCL/PF 2MG/ML CPJ IV PRN (13:00)
[2018-11-09] MEDS ORDERED: ONDANSETRON HCL 4MG/2ML INJ IV PRN ×2 (13:00→15:45)
[2018-11-09] MEDS ORDERED: MEPERIDINE HCL/PF 25MG/ML CPJ IV PRN (13:00)
[2018-11-09] MEDS ORDERED: DOBUTAMINE 250MG PREMIX 250 ML IV ONE (13:42)
[2018-11-09] MEDS ORDERED: ATROPINE SULFATE 1MG/10ML SYR IV PRN (15:45)
[2018-11-09] MEDS ORDERED: WARFARIN SODIUM 5MG TABLET PO NR ×2 (18:00→21:00)
[2018-11-10] VITALS (44 sets, daily range): BP systolic 69–126; BP diastolic 36–90
[2018-11-10] MEDS: IPRATROPIUM BROMIDE (0.02%) 0.5MG/2.5ML NEB HHN SCH ×4 (01:29→20:02)
[2018-11-10 05:46] LABS: BASOPHILS % 0.5 % (0.0-2.0); EOSINOPHILS % 3.1 % (0.0-5.0); HEMATOCRIT. 37.1 % (42.0-52.0); LYMPHOCYTES % 23.1 % (20.0-50.0); MEAN CORPUSCULAR HEMOGLOBIN 25.4 pg (28.0-32.0); MEAN CORPUSCULAR VOLUME 78.5 fL (80.0-94.0); MEAN PLATELET VOLUME 8.5 fl (7.4-10.4); MONOCYTES % 7.8 % (2.0-8.0); NEUTROPHILS % 65.5 % (40.0-76.0); PLATELET 202 x1000/uL (130-400); RED BLOOD CELL COUNT 4.72 mill/uL (4.7-6.1); RED CELL DISTRIBUTION WIDTH 16.1 % (11.6-14.6)
[2018-11-10 05:51] LABS: INR 1.2; PROTHROMBIN TIME 12.5 sec (9.6-11.0)
[2018-11-10 06:00] LABS: CHLORIDE 106 mEq/L (98-107)
[2018-11-10] MEDS: LOSARTAN POTASSIUM 50 MG TABLET PO SCH (07:49)
[2018-11-10] MEDS: NICOTINE 14MG PATCH TD SCH (08:35)
[2018-11-10] MEDS: FAMOTIDINE 20MG TABLET PO SCH ×2 (08:36→21:21)
[2018-11-10] MEDS: FUROSEMIDE 40MG TABLET PO SCH ×2 (08:36→21:21)
[2018-11-10] MEDS: METOPROLOL TARTRATE 100MG TABLET PO SCH ×2 (08:36→21:21)
[2018-11-10] MEDS ORDERED: WARFARIN SODIUM 7.5MG TABLET PO NR (18:00)
[2018-11-11] VITALS (14 sets, daily range): BP systolic 87–120; BP diastolic 52–79
[2018-11-11] MEDS: IPRATROPIUM BROMIDE (0.02%) 0.5MG/2.5ML NEB HHN SCH (02:00)
[2018-11-11 06:27] LABS: INR 1.3; PROTHROMBIN TIME 13.6 sec (9.6-11.0)
[2018-11-11] MEDS: NICOTINE 14MG PATCH TD SCH (08:53)
[2018-11-11] MEDS: FAMOTIDINE 20MG TABLET PO SCH (08:53)
[2018-11-11] MEDS: FUROSEMIDE 40MG TABLET PO SCH (08:53)
[2018-11-11] MEDS: LOSARTAN POTASSIUM 50 MG TABLET PO SCH (08:54)
[2018-11-11] MEDS ORDERED: METOPROLOL TARTRATE 50MG TABLET PO SCH (09:00)
[2018-11-11] MEDS ORDERED: ENOXAPARIN 120MG/0.8ML SYR SUBCUT SCH (11:00)
[2018-11-11] MEDS ORDERED: WARFARIN SODIUM 10MG TABLET PO NR (18:00)
== END 2018-11-11 14:20 | disposition home or self-care (01) | DRG 175 ==
LOC: ER 03:15 → CVICU 05:53 → ENRESERV 07:09 → 8WST 11-11 07:49
PROVIDERS: ADMIT Internal Medicine; ATTEND Internal Medicine
PROC: 4A023FZ Measurement of Cardiac Rhythm, Percutaneous Approach (ICD-10-PCS; principal; 2018-11-09)
PROC: 02583ZZ Destruction of Conduction Mechanism, Percutaneous Approach (ICD-10-PCS; 2018-11-09)
PROC: 4A0234Z Measurement of Cardiac Electrical Activity, Percutaneous Approach (ICD-10-PCS; 2018-11-09)
PROC: 02K83ZZ Map Conduction Mechanism, Percutaneous Approach (ICD-10-PCS; 2018-11-09)
DX: I48.91 Unspecified atrial fibrillation (principal); J96.00 Acute respiratory failure, unspecified whether with hypoxia or hypercapnia; I50.43 Acute on chronic combined systolic (congestive) and diastolic (congestive) heart failure; I42.0 Dilated cardiomyopathy; E44.0 Moderate protein-calorie malnutrition; D68.59 Other primary thrombophilia; I27.20 Pulmonary hypertension, unspecified; I42.9 Cardiomyopathy, unspecified; I47.1 Supraventricular tachycardia; I48.92 Unspecified atrial flutter; J44.9 Chronic obstructive pulmonary disease, unspecified; D64.9 Anemia, unspecified; E11.9 Type 2 diabetes mellitus without complications; I11.0 Hypertensive heart disease with heart failure; N28.9 Disorder of kidney and ureter, unspecified; E78.1 Pure hyperglyceridemia; T45.515A Adverse effect of anticoagulants, initial encounter; E78.5 Hyperlipidemia, unspecified; E66.9 Obesity, unspecified; F17.210 Nicotine dependence, cigarettes, uncomplicated; Y92.89 Other specified places as the place of occurrence of the external cause; Z79.01 Long term (current) use of anticoagulants; Z86.711 Personal history of pulmonary embolism; Z91.19 Patient's noncompliance with other medical treatment and regimen; Z79.899 Other long term (current) drug therapy; Z71.6 Tobacco abuse counseling; Z68.29 Body mass index [BMI] 29.0-29.9, adult
CPT/HCPCS: 36415; 36600; 71045; 80048; 80061; 80305; 82375; 82550; 82553; 82805; 83036; 83605; 83735; 83880; 84100; 84484; 93005; 93306; 93613; 93621; 93623; 93653; 93970; 94640; 96361; 96365; 96375; 97162; 97166; 97530; 99285; 99406; C1730; C1731; C1732; C1893; J0153; J0282; J1100; J1160; J1250; J1644; J1650; J1940; J2250; J2405; J2704; J2710; J3010; J3490; J7040; J7060; A4315

== ENCOUNTER 2022-09-18 13:13 | Emergency (ER) | payer MEDICAID ==
[~2022-09-18] VITALS: Ht 193 cm; Wt 124.0 kg
[2022-09-18] MEDS ORDERED: KETOROLAC 30MG/ML VIAL IV STA (14:28)
[2022-09-18] MEDS ORDERED: SODIUM CHLORIDE 0.9% 1,000 ML IV ONE (14:30)
[2022-09-18 15:47] LABS: BASOPHILS % 0.9 % (0.0-2.0); EOSINOPHILS % 6.1 % (0.0-5.0); HEMATOCRIT. 36.8 % (42.0-52.0); HEMOGLOBIN. 12.1 g/dL (14.0-18.0); LYMPHOCYTES % 31.3 % (20.0-50.0); MEAN CORPUSCULAR HEMOGLOBIN 25.7 pg (28.0-32.0); MEAN CORPUSCULAR VOLUME 78.6 fL (80.0-94.0); MEAN PLATELET VOLUME 9.3 fl (7.4-10.4); MONOCYTES % 7.9 % (2.0-8.0); NEUTROPHILS % 53.8 % (40.0-76.0); PLATELET 234 x1000/uL (130-400); RED BLOOD CELL COUNT 4.68 mill/uL (4.7-6.1); RED CELL DISTRIBUTION WIDTH 14.5 % (11.6-14.6)
[2022-09-18 15:56] LABS: CHLORIDE 107 mEq/L (98-107)
[2022-09-18 17:00] VITALS: BP 130/71
== END 2022-09-18 17:09 | disposition home or self-care (01) ==
LOC: ER 13:13
DX: E86.0 Dehydration (principal); R07.89 Other chest pain; I10 Essential (primary) hypertension; F14.10 Cocaine abuse, uncomplicated; F17.210 Nicotine dependence, cigarettes, uncomplicated; Z86.718 Personal history of other venous thrombosis and embolism; Z86.711 Personal history of pulmonary embolism; Z79.01 Long term (current) use of anticoagulants
CPT/HCPCS: 36415; 71046; 80048; 84145; 84484; 85025; 93005; 96361; 96374; 99285; C1893; J1885; J7030; Z7610

== ENCOUNTER 2024-03-21 08:48 | Emergency (ER) | payer MEDICAID ==
[~2024-03-21] VITALS: Ht 180.3 cm; Wt 96.0 kg
[~2024-03-21 08:48] MED LIST changes: +LOSA-413 PO; -LOSA50TA3 PO
[2024-03-21 09:02] VITALS: O2SAT 98
[2024-03-21] MEDS ORDERED: ONDANSETRON HCL 4MG/2ML INJ IV STA (09:12)
[2024-03-21] MEDS ORDERED: MORPHINE SULFATE 4 MG/ML INJ (FOR IV/IM USE) IV STA (09:12)
[2024-03-21] MEDS: SODIUM CHLORIDE 0.9% 1,000 ML IV ONE (09:15)
[2024-03-21 09:28] LABS: BASOPHILS % 0.9 % (0.0-2.0); EOSINOPHILS % 4.6 % (0.0-5.0); HEMATOCRIT. 38.6 % (42.0-52.0); HEMOGLOBIN. 12.6 g/dL (14.0-18.0); LYMPHOCYTES % 35.9 % (20.0-50.0); MEAN CORPUSCULAR HEMOGLOBIN 26.5 pg (28.0-32.0); MEAN CORPUSCULAR HGB CONC 32.6 g/dL (31.0-37.0); MEAN CORPUSCULAR VOLUME 81.2 fL (80.0-94.0); MEAN PLATELET VOLUME 8.4 fl (7.4-10.4); NEUTROPHILS % 53.6 % (40.0-76.0); PLATELET 246 x1000/uL (130-400); RED BLOOD CELL COUNT 4.75 mill/uL (4.7-6.1); RED CELL DISTRIBUTION WIDTH 15.6 % (11.6-14.6); WHITE BLOOD COUNT 6.8 x1000/uL (4.5-11.0)
[2024-03-21 09:29] LABS: CLARITY URINE CLEAR (CLEAR); COLOR URINE YELLOW (YELLOW); GLUCOSE URINE NEGATIVE (NEGATIVE); KETONES URINE TRACE (NEGATIVE); LEUKOCYTE ESTERASE URINE 1+ (NEGATIVE); NITRITE URINE NEGATIVE (NEGATIVE); OCCULT BLOOD URINE 2+ (NEGATIVE); PH URINE 5.5 (4.5-8.0); PROTEIN URINE 1+ (NEGATIVE)
[2024-03-21 09:35] LABS: CHLORIDE 109 mEq/L (98-107); POTASSIUM 3.8 mEq/L (3.5-5.1); SODIUM 140 mEq/L (136-145)
[2024-03-21 09:36] LABS: CARBON DIOXIDE 27 mEq/L (21-32)
[2024-03-21 09:37] LABS: CALCIUM 9.7 mg/dL (8.7-10.4)
[2024-03-21 09:41] LABS: GLUCOSE 101 mg/dL (70-105)
[2024-03-21 09:42] LABS: UREA NITROGEN BLOOD 10 mg/dL (9-23)
[2024-03-21 09:43] LABS: ALANINE AMINOTRANSFERASE 31 IU/L (10-49); ALBUMIN 4.7 g/dL (3.2-4.8); ASPARTATE AMINOTRANSFERASE 35 IU/L (<34)
[2024-03-21 09:44] LABS: BILIRUBIN DIRECT 0.3 mg/dL (<=3.0); BILIRUBIN TOTAL 0.9 mg/dL (0.1-1.0); PROTEIN TOTAL 7.4 g/dL (6.0-8.3)
[2024-03-21 09:51] LABS: BACTERIA URINE NONE SEEN; RBC URINE 0-2 /hpf (0-2); SQUAMOUS EPITHELIAL CELL URINE 1+ /lpf (RARE/1+)
[2024-03-21 10:03] LABS: INR 1.3; PROTHROMBIN TIME 14.6 sec (9.6-11.0)
[2024-03-21] MEDS: MORPHINE SULFATE 4 MG/ML INJ (FOR IV/IM USE) IV NR (14:12)
[2024-03-21] MEDS: CEFTRIAXONE 2GM/50ML 50 ML IV ONE (14:12)
[2024-03-21] MEDS: ONDANSETRON HCL 4MG/2ML INJ IV NR (14:12)
[2024-03-21 14:16] VITALS: BP 135/72; PULSE 76; RESP 17; TEMP 98
[2024-03-21] MEDS ORDERED: CEPH500T MT (14:44)
== END 2024-03-21 15:16 | disposition home or self-care (01) ==
LOC: ER 08:48
DX: N12 Tubulo-interstitial nephritis, not specified as acute or chronic (principal); I10 Essential (primary) hypertension; F14.10 Cocaine abuse, uncomplicated; Z79.899 Other long term (current) drug therapy; Z87.01 Personal history of pneumonia (recurrent)
CPT/HCPCS: 80076; 80048; 81003; 83690; 85025; 85610; 87086; 36415; 74176; 93005; 96361; 96365; 96375; 99285; J0696; J2405; J2270; J7030; Z7610 ×5

== ENCOUNTER 2025-01-11 09:51 | Emergency (ER) | payer MEDICAID ==
[~2025-01-11] VITALS: Ht 193 cm; Wt 127.0 kg
[~2025-01-11 09:51] MED LIST changes: +CEPH500T MT
[2025-01-11 10:18] VITALS: O2SAT 99
[2025-01-11 11:03] LABS: BASOPHILS % 0.9 % (0.0-2.0); DIFFERENTIAL COMMENT 0; EOSINOPHILS % 7.3 % (0.0-5.0); HEMATOCRIT. 37.9 % (42.0-52.0); HEMOGLOBIN. 12.3 g/dL (14.0-18.0); LYMPHOCYTES % 38.4 % (20.0-50.0); MEAN CORPUSCULAR HEMOGLOBIN 25.2 pg (28.0-32.0); MEAN CORPUSCULAR HGB CONC 32.4 g/dL (31.0-37.0); MEAN CORPUSCULAR VOLUME 77.8 fL (80.0-94.0); MEAN PLATELET VOLUME 8.7 fl (7.4-10.4); NEUTROPHILS % 46.4 % (40.0-76.0); PLATELET 204 x1000/uL (130-400); RED BLOOD CELL COUNT 4.87 mill/uL (4.7-6.1); RED CELL DISTRIBUTION WIDTH 14.6 % (11.6-14.6); WHITE BLOOD COUNT 5.8 x1000/uL (4.5-11.0)
[2025-01-11 11:11] LABS: CHLORIDE 107 mEq/L (98-107); POTASSIUM 3.7 mEq/L (3.5-5.1); SODIUM 140 mEq/L (136-145)
[2025-01-11 11:12] LABS: CALCIUM 8.9 mg/dL (8.7-10.4); CARBON DIOXIDE 25 mEq/L (21-32); INR 3.4; PROTHROMBIN TIME 32.8 sec (9.6-11.0)
[2025-01-11 11:17] LABS: CREATININE 1.2 mg/dL (0.6-1.3); GLUCOSE 102 mg/dL (70-105); UREA NITROGEN BLOOD 12 mg/dL (9-23)
[2025-01-11 11:19] LABS: CLARITY URINE CLEAR (CLEAR); COLOR URINE YELLOW (YELLOW); GLUCOSE URINE NEGATIVE (NEGATIVE); KETONES URINE NEGATIVE (NEGATIVE); LEUKOCYTE ESTERASE URINE TRACE (NEGATIVE); NITRITE URINE NEGATIVE (NEGATIVE); OCCULT BLOOD URINE 2+ (NEGATIVE); PH URINE 6.5 (4.5-8.0); PROTEIN URINE 1+ (NEGATIVE); SPECIFIC GRAVITY URINE 1.018 (1.005-1.030)
[2025-01-11 11:19] LABS: ALANINE AMINOTRANSFERASE 45 IU/L (10-49); ALBUMIN 4.4 g/dL (3.2-4.8); ASPARTATE AMINOTRANSFERASE 44 IU/L (<34); BILIRUBIN DIRECT 0.2 mg/dL (<=3.0); BILIRUBIN TOTAL 0.7 mg/dL (0.1-1.0)
[2025-01-11 11:48] LABS: SQUAMOUS EPITHELIAL CELL URINE FEW /lpf (RARE/1+)
[2025-01-11 11:49] LABS: BACTERIA URINE FEW; YEAST URINE NONE SEEN
[2025-01-11 12:07] VITALS: TEMP 36.8
[2025-01-11] MEDS ORDERED: CEPH250C2 MT (12:38)
[2025-01-11] MEDS ORDERED: LIDO-53 TP (13:02)
[2025-01-11 13:11] VITALS: BP 123/84; PULSE 56; RESP 16; O2SAT 100
== END 2025-01-11 13:15 | disposition home or self-care (01) ==
LOC: ER 09:51
DX: R10.9 Unspecified abdominal pain (principal); I10 Essential (primary) hypertension; F10.90 Alcohol use, unspecified, uncomplicated; F14.90 Cocaine use, unspecified, uncomplicated; Z79.01 Long term (current) use of anticoagulants; Z79.899 Other long term (current) drug therapy; Z86.718 Personal history of other venous thrombosis and embolism; Z87.440 Personal history of urinary (tract) infections; Y90.9 Presence of alcohol in blood, level not specified
CPT/HCPCS: 36415; 71250; 74176; 80048; 80076; 81003; 85025; 99284